=== PATIENT | female | born 1955 | race Caucasian/White ===

== ENCOUNTER → 2018-10-09 09:23 | Outpatient (CLI) | payer OTHER, SELFPAY ==
--- NOTE | 2018-10-09 | DI.MG.S_ITS ---
BILATERAL DIGITAL SCREENING MAMMOGRAM 3D/2D WITH CAD: 10/09/2018 CLINICAL: Routine screening. Comparison is made to exams dated: 11/02/2016 mammogram, 07/27/2015 mammogram, and 03/31/2010 mammogram - [facility]. The tissue of both breasts is heterogeneously dense. This may lower the sensitivity of mammography. Current study was also evaluated with a Computer Aided Detection (CAD) system. No significant masses, calcifications, or other findings are seen in either breast. There has been no significant interval change. IMPRESSION: NEGATIVE There is no mammographic evidence of malignancy. A 1 year screening mammogram is recommended. This exam was interpreted at Station ID: [id number]. NOTE: For mammograms, a report in lay terms will be sent to the patient. Approximately 15% of breast malignancies will not be visualized mammographically. In the management of a palpable breast mass, a negative mammogram must not discourage biopsy of a clinically suspicious lesion. Electronically Signed By: Carlton gustafson/zahida:10/09/2018 10:19:18 letter sent: Normal Exam ACR BI-RADS Category 1: Negative [id number]
== END ==
PROVIDERS: PCP Family Medicine; Visit Provider Family Medicine
DX: Z12.31 Encounter for screening mammogram for malignant neoplasm of breast (principal); Z78.0 Asymptomatic menopausal state; E07.9 Disorder of thyroid, unspecified; Z82.62 Family history of osteoporosis
CPT/HCPCS: 77063; 77067; 77080

== ENCOUNTER 2018-10-18 08:23 | Emergency (ER) | payer OTHER, SELFPAY ==
--- NOTE | 2018-10-18 08:31 | ED.FALL ---
HPI - Fall General Chief Complaint: Fall Stated Complaint: fell at work Time Seen by Provider: 10/18/18 08:25 Source: patient and family Mode of arrival: ambulatory Limitations: no limitations History of Present Illness HPI Narrative: 63-year-old nonsmoker with hypertension presents with a chief complaint of a mechanical fall suffered yesterday while at work. 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 She has a small bump on her lip but denies any noted head pain or head injury. She denies any neck or back pain. She has pain in her knee which is worse with range of motion and ambulation but admittedly not terrible. Additionally she has pain in her right shoulder which is made worse with range of motion. She denies numbness, tingling or weakness. She has been taking Motrin for pain MD complaint: fall and other Onset (ago): hour(s) Fall from: standing Fall witnessed: no Place fall occurred: work Loss of consciousness: none Prolonged down time: no Symptoms prior to fall: none Context: tripped/slipped Location of injury - extremities: Left: knee and Right: shoulder Severity: mild Quality: aching Associated symptoms (after fall): other Related Data Home Medications Medication Instructions Recorded Confirmed Atorvastatin Calcium (Lipitor) 5 mg PO DAILY #0 12/29/05 Fexofenadine Hydrochloride 60 mg PO DAILY #0 12/29/05 (Harper) HYDROCHLOROTHIAZIDE (Hydrodiuril / 0 mg PO * UK DOSE/FREQUENCY #0 12/29/05 Hctz) Hydroxychloroquine Sulfate 200 mg PO TWICE DAILY #0 12/29/05 (Plaquenil) Allergies Allergy/AdvReac Type Severity Reaction Status Date / Time Penicillins [PENICILLINS] Allergy Unknown ITCHING Verified 10/18/18 08:40 Review of Systems Constitutional Denies chills, Denies fever(s), Denies lethargy and Denies weakness Eyes Denies change in vision, Denies eye discharge, Denies irritation and Denies loss of vision ENT Ears, Nose, Mouth, and Throat: Denies change in voice, Denies neck pain and Denies sore throat Cardiovascular Denies chest pain, Denies irregular heart rhythm, Denies lightheadedness, Denies palpitations, Denies dyspnea, Denies dyspnea on exertion and Denies orthopnea Respiratory Denies cough, Denies dyspnea, Denies dyspnea on exertion and Denies wheezing Gastrointestinal Gastrointestinal: Denies abdominal pain, Denies change in bowel habits, Denies diarrhea, Denies nausea and Denies vomiting Genitourinary Denies hematuria, Denies flank pain, Denies urinary incontinence and Denies urinary urgency Musculoskeletal Reports abnormal gait, Reports limited range of motion and Denies neck pain Integumentary/Breasts Denies pruritus, Denies erythema, Denies rash and Denies wounds Neurologic Reports abnormal gait, Denies confusion, Denies loss of vision and Denies weakness Psychiatric Denies anxiety, Denies confusion, Denies depression, Denies homicidal ideation and Denies suicidal ideation Endocrine Denies palpitations Hematologic/Lymphatic Denies easy bruising Allergic/Immunologic Denies wheezing Exam Narrative Exam Narrative: GENERAL: 63-year-old female appears younger than stated age in mild distress. A&O x3, GCS is 15 HEAD: Minimal bruising to left side of upper lip Normocephalic. No temporal or scalp tenderness. EYES: Pupils equal round and reactive. Extraocular motions intact. No scleral icterus. No injection or drainage. ENT: Nose without bleeding, purulent drainage or septal hematoma. Throat without erythema, tonsillar hypertrophy or exudate. Uvula midline. Airway patent. NECK: Trachea midline. No JVD or lymphadenopathy. Supple, nontender, no meningeal signs. CARDIOVASCULAR: Regular rate and rhythm without murmurs, gallops, or rubs. RESPIRATORY: Clear to auscultation. Breath sounds equal bilaterally. No wheezes, rales, or rhonchi. GASTROINTESTINAL: Abdomen soft, non-tender, nondistended. No hepato-splenomegaly, or palpable masses. No guarding. EXTREMITIES: Full but painful range of motion of both the right shoulder and left knee. No significant effusion, closed, neurovascularly intact. There is some ecchymosis to the anterior left knee BACK: Nontender without deformity or crepitance. No flank tenderness. NEURO: AOx3. SKIN: No rash or erythema. Initial Vital Signs Initial Vital Signs: Vital Signs Temperature 97.7 F 10/18/18 08:36 Pulse Rate 77 10/18/18 08:36 Respiratory Rate 18 10/18/18 08:36 Blood Pressure 195/97 H 10/18/18 08:36 Pulse Oximetry 99 10/18/18 08:36 [facility] [place] Medical History (Updated 10/18/18 @ 08:35 by Jose Page DO) HTN (hypertension) (Acute) Social History Smoking Status: Never smoker Social History Smoking Status: Never smoker Course Orders Ordered: ED Orders 10/18/18 08:31 XR knee LT 3V Stat XR shoulder RT min 2V Stat Vital Signs - 8 hr 10/18/18 08:36 10/18/18 09:31 Temperature 97.7 F 98.1 F Pulse Rate 77 76 Respiratory Rate 18 20 Blood Pressure 195/97 H 161/95 H Pulse Oximetry 99 98 MDM - Fall Imaging Data Knee Xray: Radiologist's impression: [address] [address] XRay Report Signed Patient: SpragueArmen#: [id number] : 4Acct:[id number] Age/Sex: 63 / FDate of Service: 10/18/18 Loc: ED Accession Number: [id number] Procedure: XR knee LT 3V Ordering Provider: Jose Page D.O. PROCEDURE: XR KNEE LT 3V INDICATIONS: fall with anterior knee pain TECHNIQUE: 3 views of the knee were acquired. COMPARISON: None. FINDINGS: Bones: No fractures or dislocations. No suspicious bony lesions. Mild periarticular osteophyte formation at the left knee joint. Soft tissues: No joint effusion. No suspicious soft tissue calcifications. IMPRESSION: Osteoarthritis. No acute fracture. No osseous lesion. If symptoms and/or clinical suspicion for pathology persist, further assessment with repeat, or advanced imaging (e.g., CT, MRI, or bone scan) may be helpful for further assessment. Dictated by: Sukhwinder De Guzman M.D. on 10/18/2018 at 9:07 Approved by: Sukhwinder De Guzman M.D. on 10/18/2018 at 9:08 Shoulder Xray: Radiologist's impression: [address] [address] XRay Report Signed Patient: Armen Sprague#: [id number] : 4Acct:[id number] Age/Sex: 63 / FDate of Service: 10/18/18 Loc: ED Accession Number: [id number] Procedure: XR shoulder RT min 2V Ordering Provider: Jose Page D.O. PROCEDURE: XR SHOULDER RT MIN 2V INDICATIONS: fall with R shoulder pain TECHNIQUE: 3 views of the shoulder were acquired. COMPARISON: None. FINDINGS: Bones: No fractures or dislocations. No suspicious bony lesions. Visualized ribs appear intact. Periarticular osteophyte formation at the acromioclavicular joint glenohumeral joints. Soft tissues: No suspicious soft tissue calcifications. IMPRESSION: Osteoarthritis. No acute fracture. No osseous lesion. If symptoms and/or clinical suspicion for pathology persist, further assessment with repeat, or advanced imaging (e.g., CT, MRI, or bone scan) may be helpful for further assessment. Dictated by: Sukhwinder De Guzman M.D. on 10/18/2018 at 9:08 Approved by: Sukhwinder De Guzman M.D. on 10/18/2018 at 9:09 Discharge Plan Departure Patient Disposition: Home Clinical Impression: Muscle strain of right shoulder Qualifiers: Encounter type: initial encounter Qualified Code(s): S46.911A - Strain of unspecified muscle, fascia and tendon at shoulder and upper arm level, right arm, initial encounter Contusion of knee, left Qualifiers: Encounter type: initial encounter Qualified Code(s): S80.02XA - Contusion of left knee, initial encounter Discharge Date/Time: 10/18/18 09:31 Interventions: ED Discharge Assessment Last Done: 10/18/18 09:31 Instructions: DI for Shoulder Sprain Activity Restrictions/Additional Instructions: *You have been diagnosed with [right shoulder sprain and left knee contusion after fall] *What to do: *Take medications as directed: Tylenol or Motrin for pain *Follow up with your primary care provider in 2-3 days, call for an appointment. Let them know you were seen in the Emergency Department and that we ask that you be seen in follow up *Return to ER if you should have any new, worsening or concerning symptoms Prescriptions: No Action Atorvastatin Calcium (Lipitor) 5 mg PO DAILY Qty: 0 RF: 0 HYDROCHLOROTHIAZIDE (Hydrodiuril / Hctz) PO * UK DOSE/FREQUENCY Qty: 0 RF: 0 Hydroxychloroquine Sulfate (Plaquenil) 200 mg PO TWICE DAILY Qty: 0 RF: 0 Fexofenadine Hydrochloride (Harper) 60 mg PO DAILY Qty: 0 RF: 0 Referrals: Quiana Romero MD [Primary Care Provider] -
[2018-10-18 08:36] VITALS: BP 195/97; PULSE 77; RESP 18; TEMP 36.5; O2SAT 99; BMI 37.1
--- NOTE | 2018-10-18 08:36 | ED_ITS ---
HPI - Fall General Chief Complaint: Fall Stated Complaint: fell at work Time Seen by Provider: 10/18/18 08:25 Source: patient and family Mode of arrival: ambulatory Limitations: no limitations History of Present Illness HPI Narrative: 63-year-old nonsmoker with hypertension presents with a chief complaint of a mechanical fall suffered yesterday while at work. 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 She has a small bump on her lip but denies any noted head pain or head injury. She denies any neck or back pain. She has pain in her knee which is worse with range of motion and ambulation but admittedly not terrible. Additionally she has pain in her right shoulder which is made worse with range of motion. She denies numbness, tingling or weakness. She has been taking Motrin for pain MD complaint: fall and other Onset (ago): hour(s) Fall from: standing Fall witnessed: no Place fall occurred: work Loss of consciousness: none Prolonged down time: no Symptoms prior to fall: none Context: tripped/slipped Location of injury - extremities: Left: knee and Right: shoulder Severity: mild Quality: aching Associated symptoms (after fall): other Related Data Home Medications Medication Instructions Recorded Confirmed Atorvastatin Calcium (Lipitor) 5 mg PO DAILY #0 12/29/05 Fexofenadine Hydrochloride 60 mg PO DAILY #0 12/29/05 (Harper) HYDROCHLOROTHIAZIDE (Hydrodiuril / 0 mg PO * UK DOSE/FREQUENCY #0 12/29/05 Hctz) Hydroxychloroquine Sulfate 200 mg PO TWICE DAILY #0 12/29/05 (Plaquenil) Allergies Allergy/AdvReac Type Severity Reaction Status Date / Time Penicillins [PENICILLINS] Allergy Unknown ITCHING Verified 10/18/18 08:40 Review of Systems Constitutional Denies chills, Denies fever(s), Denies lethargy and Denies weakness Eyes Denies change in vision, Denies eye discharge, Denies irritation and Denies loss of vision ENT Ears, Nose, Mouth, and Throat: Denies change in voice, Denies neck pain and Denies sore throat Cardiovascular Denies chest pain, Denies irregular heart rhythm, Denies lightheadedness, Denies palpitations, Denies dyspnea, Denies dyspnea on exertion and Denies orthopnea Respiratory Denies cough, Denies dyspnea, Denies dyspnea on exertion and Denies wheezing Gastrointestinal Gastrointestinal: Denies abdominal pain, Denies change in bowel habits, Denies diarrhea, Denies nausea and Denies vomiting Genitourinary Denies hematuria, Denies flank pain, Denies urinary incontinence and Denies urinary urgency Musculoskeletal Reports abnormal gait, Reports limited range of motion and Denies neck pain Integumentary/Breasts Denies pruritus, Denies erythema, Denies rash and Denies wounds Neurologic Reports abnormal gait, Denies confusion, Denies loss of vision and Denies weakness Psychiatric Denies anxiety, Denies confusion, Denies depression, Denies homicidal ideation and Denies suicidal ideation Endocrine Denies palpitations Hematologic/Lymphatic Denies easy bruising Allergic/Immunologic Denies wheezing Exam Narrative Exam Narrative: GENERAL: 63-year-old female appears younger than stated age in mild distress. A&O x3, GCS is 15 HEAD: Minimal bruising to left side of upper lip Normocephalic. No temporal or scalp tenderness. EYES: Pupils equal round and reactive. Extraocular motions intact. No scleral icterus. No injection or drainage. ENT: Nose without bleeding, purulent drainage or septal hematoma. Throat without erythema, tonsillar hypertrophy or exudate. Uvula midline. Airway patent. NECK: Trachea midline. No JVD or lymphadenopathy. Supple, nontender, no meningeal signs. CARDIOVASCULAR: Regular rate and rhythm without murmurs, gallops, or rubs. RESPIRATORY: Clear to auscultation. Breath sounds equal bilaterally. No wheezes, rales, or rhonchi. GASTROINTESTINAL: Abdomen soft, non-tender, nondistended. No hepato- splenomegaly, or palpable masses. No guarding. EXTREMITIES: Full but painful range of motion of both the right shoulder and left knee. No significant effusion, closed, neurovascularly intact. There is some ecchymosis to the anterior left knee BACK: Nontender without deformity or crepitance. No flank tenderness. NEURO: AOx3. SKIN: No rash or erythema. Initial Vital Signs Initial Vital Signs: Vital Signs Temperature 97.7 F 10/18/18 08:36 Pulse Rate 77 10/18/18 08:36 Respiratory Rate 18 10/18/18 08:36 Blood Pressure 195/97 H 10/18/18 08:36 Pulse Oximetry 99 10/18/18 08:36 [facility] Medical History (Updated 10/18/18 @ 08:35 by Jose Page DO) HTN (hypertension) (Acute) Social History Smoking Status: Never smoker Social History Smoking Status: Never smoker Course Orders Ordered: ED Orders 10/18/18 08:31 XR knee LT 3V Stat XR shoulder RT min 2V Stat Vital Signs - 8 hr 10/18/18 08:36 10/18/18 09:31 Temperature 97.7 F 98.1 F Pulse Rate 77 76 Respiratory Rate 18 20 Blood Pressure 195/97 H 161/95 H Pulse Oximetry 99 98 MDM - Fall Imaging Data Knee Xray: Radiologist's impression: [address] [address] XRay Report Signed Patient: SpragueArmen#: [id number] : 4Acct:[id number] Age/Sex: 63 / FDate of Service: 10/18/18 Loc: ED Accession Number: [id number] Procedure: XR knee LT 3V Ordering Provider: Jose Page D.O. PROCEDURE: XR KNEE LT 3V INDICATIONS: fall with anterior knee pain TECHNIQUE: 3 views of the knee were acquired. COMPARISON: None. FINDINGS: Bones: No fractures or dislocations. No suspicious bony lesions. Mild periarticular osteophyte formation at the left knee joint. Soft tissues: No joint effusion. No suspicious soft tissue calcifications. IMPRESSION: Osteoarthritis. No acute fracture. No osseous lesion. If symptoms and/or clinical suspicion for pathology persist, further assessment with repeat, or advanced imaging (e.g., CT, MRI, or bone scan) may be helpful for further assessment. Dictated by: Sukhwinder De Guzman M.D. on 10/18/2018 at 9:07 Approved by: Sukhwinder De Guzman M.D. on 10/18/2018 at 9:08 Shoulder Xray: Radiologist's impression: [address] [address] XRay Report Signed Patient: Armen Sprague#: [id number] : 4Acct:[id number] Age/Sex: 63 / FDate of Service: 10/18/18 Loc: ED Accession Number: [id number] Procedure: XR shoulder RT min 2V Ordering Provider: Jose Page D.O. PROCEDURE: XR SHOULDER RT MIN 2V INDICATIONS: fall with R shoulder pain TECHNIQUE: 3 views of the shoulder were acquired. COMPARISON: None. FINDINGS: Bones: No fractures or dislocations. No suspicious bony lesions. Visualized ribs appear intact. Periarticular osteophyte formation at the acromioclavicular joint glenohumeral joints. Soft tissues: No suspicious soft tissue calcifications. IMPRESSION: Osteoarthritis. No acute fracture. No osseous lesion. If symptoms and/or clinical suspicion for pathology persist, further assessment with repeat, or advanced imaging (e.g., CT, MRI, or bone scan) may be helpful for further assessment. Dictated by: Sukhwinder De Guzman M.D. on 10/18/2018 at 9:08 Approved by: Sukhwinder De Guzman M.D. on 10/18/2018 at 9:09 Discharge Plan Departure Patient Disposition: Home Clinical Impression: Muscle strain of right shoulder Qualifiers: Encounter type: initial encounter Qualified Code(s): S46.911A - Strain of unspecified muscle, fascia and tendon at shoulder and upper arm level, right arm, initial encounter Contusion of knee, left Qualifiers: Encounter type: initial encounter Qualified Code(s): S80.02XA - Contusion of left knee, initial encounter Discharge Date/Time: 10/18/18 09:31 Interventions: ED Discharge Assessment Last Done: 10/18/18 09:31 Instructions: DI for Shoulder Sprain Activity Restrictions/Additional Instructions: *You have been diagnosed with [right shoulder sprain and left knee contusion after fall] *What to do: *Take medications as directed: Tylenol or Motrin for pain *Follow up with your primary care provider in 2-3 days, call for an appointment. Let them know you were seen in the Emergency Department and that we ask that you be seen in follow up *Return to ER if you should have any new, worsening or concerning symptoms Prescriptions: No Action Atorvastatin Calcium (Lipitor) 5 mg PO DAILY Qty: 0 RF: 0 HYDROCHLOROTHIAZIDE (Hydrodiuril / Hctz) PO * UK DOSE/FREQUENCY Qty: 0 RF: 0 Hydroxychloroquine Sulfate (Plaquenil) 200 mg PO TWICE DAILY Qty: 0 RF: 0 Fexofenadine Hydrochloride (Harper) 60 mg PO DAILY Qty: 0 RF: 0 Referrals: Quiana Romero MD [Primary Care Provider] -
[2018-10-18 09:31] VITALS: BP 161/95; PULSE 76; RESP 20; TEMP 36.7; O2SAT 98
== END 2018-10-18 09:31 | disposition home or self-care (01) ==
LOC: ED 09:31
PROVIDERS: Emergency Provider Emergency Medicine; PCP Family Medicine
DX: S46.911A Strain of unspecified muscle, fascia and tendon at shoulder and upper arm level, right arm, initial encounter (principal); S80.02XA Contusion of left knee, initial encounter; W18.30XA Fall on same level, unspecified, initial encounter; Y99.0 Civilian activity done for income or pay
CPT/HCPCS: 73030; 73562; 99282; 99283

== ENCOUNTER → 2020-08-26 10:38 | Outpatient (CLI) | payer OTHER, SELFPAY ==
--- NOTE | 2020-08-26 | DI.US.S_ITS ---
PROCEDURE: US PELVIC COMPLETE INDICATIONS: POSTMENOPAUSAL BLEEDING TECHNIQUE: Real-time scanning was performed of the pelvic organs, with image documentation. Additional endovaginal scanning was necessary due to incomplete visualization of the adnexal and endometrial structures by transabdominal scanning. Additionally, at the right uterus in the subserosal position there is a heterogeneous hypoechoic mass with internal vascularity measuring up to 2.7 x 2.7 x 2.9 cm. This could represent a subserosal fibroid or unusual manifestation of neoplasm. COMPARISON: None. FINDINGS: Uterus: Uterus is normal in size at 3.5 x 4.3 x 7.3 cm. The endometrium measures 16.2 mm in combined thickness, with hyperemia and abnormal masslike appearance for postmenopausal patient.. Ovaries: The right ovary measures 1.9 x 1.2 x 1.0 cm, and the left ovary is not well visualized. Other: No pathologic free abdominal or pelvic fluid. IMPRESSION: Endometrial mass, in the setting of postmenopausal vaginal bleeding, consistent with endometrial carcinoma. Biopsy is anticipated. Note is made of a 2.7 cm subserosal exophytic masslike structure at the right uterine border, considered statistically more likely to represent a fibroid than an unusual manifestation of primary or metastatic neoplasm. Contrast-enhanced MR scanning may be warranted for more accurate assessment in this clinical circumstance Nonvisualization of the left ovary.. Dictated by: Lamin Muse M.D. on 08/26/2020 at 12:32 Approved by: Lamin Muse M.D. on 08/26/2020 at 12:35
== END ==
PROVIDERS: PCP Family Medicine; Referring Provider Family Medicine; Visit Provider Family Medicine
DX: N95.0 Postmenopausal bleeding (principal); N85.9 Noninflammatory disorder of uterus, unspecified
CPT/HCPCS: 76830; 76856

== ENCOUNTER → 2020-09-06 09:17 | Outpatient (CLI) | payer OTHER, SELFPAY ==
[2020-09-06 09:52] LABS: COVID19 -Nasal RAPID Negative (Negative)
== END ==
PROVIDERS: PCP Family Medicine; Visit Provider Obstetrics & Gynecology
DX: Z01.812 Encounter for preprocedural laboratory examination (principal)
CPT/HCPCS: 87635

== ENCOUNTER 2020-09-09 06:40 | Day surgery (SDC) | payer OTHER, SELFPAY ==
[2020-09-07 13:15] VITALS: BMI 32.7
[2020-09-09] VITALS (7 sets, daily range): BP systolic 140–168; BP diastolic 70–85; PULSE 63–78; RESP 12–16; TEMP 36.4–36.7; O2SAT 97–99; BMI 32.7
--- NOTE | 2020-09-09 | PATH_ITS ---
[facility] Accession Number: [id number] . 01 Material submitted: . endometrium - ENDOMETRIAL CURRETTINGS AND MASS . 02 Diagnosis: Endometrial Curettings and Mass: Endometrial adenocarcinoma, endometrioid pattern, favor FIGO grade 1. [facility] 09/15/2020 1655 Local . 02 Comment: As part of routine quality improvement manager, Dr. Chris also reviewed this case and agrees with the diagnosis. . Results discussed with Dr. Susie Baldwin's R.N., on 09-15-20 at approximately 4:31 p.m. . 02 Electronically signed: . Geovanna Wang MD, Pathologist NPI- [id number] . 01 Gross description: . The specimen is received in formalin, labeled endometrial curettings and mass, and consists of multiple gifford-pink fragments of soft tissue admixed with mucus and clotted blood measuring 3.0 x 3.0 x 0.6 cm in aggregate. The specimen is entirely submitted in cassettes A1-A2. ([id number]) /[facility] 09/11/2020 1709 Local . 02 Pathologist provided ICD-10: N94.89, N85.02, C54.1 . 02 CPT . 679453 Performed at: 01 [facility] [address], [place], [place] [id number] MD Waldemar Kimball MD Phone: [phone] Performed at: 02 [facility] [address] [place], [place] [id number] MD Emilee Kincaid MD Phone: [phone]
[2020-09-09] MEDS: LACTATED RINGERS 1,000 ML 100 ML IV (07:24)
--- NOTE | 2020-09-09 07:39 | PM.HP.1 ---
History of Present Illness History of Present Illness Date Patient Seen: 09/09/20 Time Patient Seen: 07:40 Chief complaint: SDC Narrative: Patient is a 64-year-old 0 who presents for a D&C hysteroscopy due to complex atypical endometrial hyperplasia, and an Endo [place] mass Patient History Medical History (Updated 09/06/20 @ 09:39 by Mary Richards MD) Acquired hypothyroidism HTN (hypertension) Hypercholesterolemia Lupus Surgical History (Updated 09/07/20 @ 13:20 by Rochelle Haas RN) Hx of colonoscopy (2015) [place] teeth extracted Family & Social History Social History: household members spouse Tobacco & Substance use: Smoking Status Never smoker alcohol intake frequency 0-2 drinks per day Substance Use Type does not use Meds Home Medications and Allergies Home Medications Medication Instructions Recorded Confirmed Type HYDROCHLOROTHIAZIDE (Hydrodiuril / 25 mg PO * UK DOSE/FREQUENCY #0 12/29/05 09/09/20 History Hctz) atorvastatin 5 mg PO DAILY #0 12/29/05 09/07/20 History hydroxychloroquine 200 mg PO BID #0 12/29/05 09/07/20 History levothyroxine PO 09/06/20 09/06/20 History hydroxychloroquine 09/09/20 History venlafaxine mg 09/09/20 History Allergies Allergy/AdvReac Type Severity Reaction Status Date / Time Penicillins [PENICILLINS] Allergy Unknown ITCHING Verified 09/06/20 08:53 Exam Vital Signs (past 8 hours): - 09/09/20 07:15 Temperature 97.9 F Pulse Rate 76 Respiratory Rate 13 Blood Pressure 161/80 H Pulse Oximetry 98 Oxygen Delivery Method Room Air Narrative Exam Narrative: HEENT: No thyromegaly, no anterior cervical or supraclavicular lymphadenopathy. Lungs:Clear to auscultation bilaterally, no wheezes. Cardiovascular: Regular rate and rhythm, no murmurs, rubs, or gallops. Abdomen: No scars. No hepatosplenomegaly. No masses palpable. External genitalia: Normal Vagina: Normal Cervix: Normal Bimanual exam: 7 Week size anteverted uterus. Mobile. No adnexal masses or tenderness Rectal: No masses. Assessment & Plan Assessment & Plan narrative: Assessment: 64-year-old 0 with complex atypical endometrial hyperplasia and an endometrial mass Plan: D&C hysteroscopy with biopsy of the mass to rule out endometrial cancer The risks, benefits, and alternatives to the procedure were explained to the patient. The risks including bleeding, infection, and uterine perforation. She understands these risks and agrees to proceed. A full par Q was held and consent form was signed. COVID-19 COVID-19 status: Negative Result date/Date tested (Pos, Neg/Pending): 09/06/20 Time Spent With Patient Time with patient: 15-24 minutes
--- NOTE | 2020-09-09 07:41 | PM.PREOP ---
Pre-operative Note COVID-19 COVID-19 status: Negative Result date/Date tested (Pos, Neg/Pending): 09/06/20 Interval Note History & Physical reviewed/Exam performed by Physician: Yes Changes to H&P: No H&P completed within 30 days and has changed as indicated here:: 09/09/20
--- NOTE | 2020-09-09 08:03 | SUR.OPER ---
Lithotomy on padded OR bed, head on pillow, arms secured on padded arm boards at <90 degrees abduction. Legs secured in padded yellow fins stirrups.
--- NOTE | 2020-09-09 08:24 | P.OP_ITS ---
Operative Date/Time/Diagnoses Date of procedure: 09/09/20 Time of procedure: 08:24 Pre-op diagnosis: Complex atypical endometrial hyperplasia Uterine mass Post-op diagnosis: same Procedure & Clinicians Procedure: Procedures Operation Date: 09/09/20 07:45 Actual Procedures Side Surgeon p D&C Hysteroscopy Mary Richards MD Indications: Complex atypical endometrial hyperplasia Endometrial mass Surgeon: Mary Richards Anesthesia Type: General (LMA) Operative Notes Findings: Seven week size anteverted uterus Polypoid mass arising from the posterior wall of the uterus Fallopian tube ostia not observed Closure Type: not applicable Specimen(s): endometrial curettings (And pieces of endometrial mass) Estimated blood loss (mL): 10 Blood products transfused: none Procedure in detail: After informed consent was obtained, the patient was taken to the operating room where she was placed in the dorsal supine position. After adequate LMA general anesthesia was achieved, she was placed in the dorsal lithotomy position, and prepped and draped in the usual sterile fashion. A time-out was performed. A Carrasquillo speculum was placed into the vagina. The anterior lip of the cervix was grasped with a single-tooth tenaculum. The cervi dashawn os was sequentially dilated to the # 9 Hegar dilator. The hysteroscope passed easily into the endometrial cavity. There was an irregular mass arising from the posterior wall of the uterus. There was thickened endometrium throughout. The hysteroscope was removed. The polyp forceps were used to obtain pieces of the mass. Gentle sharp curettage was then performed yielding moderate amount of curettings. The instruments were removed from the uterus. The single-tooth tenaculum was removed from the anterior lip of the cervix. The bivalve speculum was removed from the vagina. Sponge, lap, and instrument counts were correct x2. The patient tolerated the procedure well, and was taken to PACU in stable condition. Complications: none Post-operative Condition: stable Disposition: PACU Plan for aftercare: Home after recovery
[2020-09-09] MEDS: OXYCODONE/ACETAMINOPHEN 5/325 TABLET 1 TAB PO (08:47)
== END 2020-09-09 09:20 | disposition home or self-care (01) ==
PROVIDERS: PCP Family Medicine; Referring Provider Family Medicine; Visit Provider Obstetrics & Gynecology
PROC: 0UDB8ZZ Extraction of Endometrium, Via Natural or Artificial Opening Endoscopic (ICD-10-PCS; CPT 58558; principal; 2020-09-09 07:45)
DX: C54.1 Malignant neoplasm of endometrium (principal); E66.9 Obesity, unspecified; I10 Essential (primary) hypertension; G47.33 Obstructive sleep apnea (adult) (pediatric); E03.9 Hypothyroidism, unspecified; E78.00 Pure hypercholesterolemia, unspecified; M32.9 Systemic lupus erythematosus, unspecified
CPT/HCPCS: 58558; J1100; J1885; J2405; J2704; J3010

== ENCOUNTER → 2020-10-19 11:54 | Outpatient (CLI) | payer OTHER, SELFPAY | PROVIDERS: PCP Family Medicine; Referring Provider Obstetrics & Gynecology; Visit Provider Obstetrics & Gynecology | DX: Z01.818 Encounter for other preprocedural examination (principal) | CPT/HCPCS: 93005 ==

== ENCOUNTER → 2020-12-04 09:52 | Outpatient (CLI) | payer OTHER, SELFPAY ==
--- NOTE | 2020-12-04 | DI.MG.S_ITS ---
BILATERAL DIGITAL SCREENING MAMMOGRAM 3D/2D WITH CAD: 12/04/2020 CLINICAL: Routine screening. Comparison is made to exams dated: 10/09/2018 mammogram, 11/02/2016 mammogram, and 07/27/2015 mammogram - [facility]. The tissue of both breasts is heterogeneously dense. This may lower the sensitivity of mammography. Current study was also evaluated with a Computer Aided Detection (CAD) system. No significant masses, calcifications, or other findings are seen in either breast. There has been no significant interval change. IMPRESSION: NEGATIVE There is no mammographic evidence of malignancy. A 1 year screening mammogram is recommended. This exam was interpreted at Station ID: [id number]. NOTE: For mammograms, a report in lay terms will be sent to the patient. Approximately 15% of breast malignancies will not be visualized mammographically. In the management of a palpable breast mass, a negative mammogram must not discourage biopsy of a clinically suspicious lesion. Electronically Signed By: Shahbaz giron/zahida:12/06/2020 09:19:29 letter sent: Normal Exam ACR BI-RADS Category 1: Negative 3341F
== END ==
PROVIDERS: PCP Family Medicine; Referring Provider Family Medicine; Visit Provider Family Medicine
DX: Z12.31 Encounter for screening mammogram for malignant neoplasm of breast (principal)
CPT/HCPCS: 77063; 77067

== ENCOUNTER → 2022-01-09 11:01 | Outpatient (CLI) | payer MEDICARE, SELFPAY ==
--- NOTE | 2022-01-09 | DI.MG.S_ITS ---
BILATERAL DIGITAL SCREENING MAMMOGRAM 3D/2D WITH CAD: 01/09/2022 CLINICAL: Routine screening. Comparison is made to exams dated: 12/04/2020 mammogram, 10/09/2018 mammogram, 11/02/2016 mammogram, and 07/27/2015 mammogram - [facility]. Both breasts are heterogeneously dense, which may obscure small masses (category c / 51-75% glandular tissue). Current study was also evaluated with a Computer Aided Detection (CAD) system. No significant masses, calcifications, or other findings are seen in either breast. There has been no significant interval change. IMPRESSION: NEGATIVE There is no mammographic evidence of malignancy. A 1 year screening mammogram is recommended. Based on the Tyrer Cuzick model (a risk assessment model) the patient's lifetime risk is 10.3% and her 10 year risk is 5.7%. According to the ACR, ACS, and NCCN guidelines, an annual breast MRI exam along with mammogram is recommended if the patient's lifetime risk is 20% or greater. This exam was interpreted at Station ID: [id number]. NOTE: For mammograms, a report in lay terms will be sent to the patient. Approximately 15% of breast malignancies will not be visualized mammographically. In the management of a palpable breast mass, a negative mammogram must not discourage biopsy of a clinically suspicious lesion. Electronically Signed By: Riki richards/zahida:01/09/2022 13:06:41 letter sent: Normal Exam ACR BI-RADS Category 1: Negative 3341F
== END ==
PROVIDERS: PCP Family Medicine; Referring Provider Family Medicine; Visit Provider Family Medicine
DX: Z12.31 Encounter for screening mammogram for malignant neoplasm of breast (principal); Z13.820 Encounter for screening for osteoporosis; M85.851 Other specified disorders of bone density and structure, right thigh; M85.852 Other specified disorders of bone density and structure, left thigh; Z90.710 Acquired absence of both cervix and uterus
CPT/HCPCS: 77063; 77067; 77080

== ENCOUNTER → 2022-04-11 10:07 | Outpatient (CLI) | payer MEDICARE, SELFPAY ==
[2022-04-11 12:31] LABS: COVID19 -Nasal RAPID Negative (Negative)
== END ==
PROVIDERS: PCP Family Medicine; Visit Provider Surgery
DX: Z01.812 Encounter for preprocedural laboratory examination (principal); Z20.822 Contact with and (suspected) exposure to COVID-19
CPT/HCPCS: 87635; C9803

== ENCOUNTER 2022-04-12 09:48 | Day surgery (SDC) | payer MEDICARE, SELFPAY ==
[2022-04-12 10:22] VITALS: BP 134/72; PULSE 63; RESP 15; TEMP 36.8; O2SAT 100; BMI 33.4
[2022-04-12] MEDS: SODIUM CHLORIDE 0.9% 1,000 ML 84 ML IV (10:31)
--- NOTE | 2022-04-12 10:31 | P.HP_ITS ---
History of Present Illness History of Present Illness Date Patient Seen: 04/12/22 Chief complaint: Colonoscopy Narrative: History of colon polyps Patient History Medical History (Updated 09/21/20 @ 19:52 by Monica Varner) Acquired hypothyroidism HTN (hypertension) Hypercholesterolemia Lupus Scoliosis Sleep apnea Surgical History (Updated 09/21/20 @ 19:52 by Monica Varner) Anesthesia Hx of colonoscopy (2015) [place] teeth extracted Family & Social History Family History (Updated 09/21/20 @ 19:53 by Monica Varner) Father Cancer Mother Dementia Brother Diabetes mellitus Social History: household members spouse Tobacco & Substance use: Smoking Status Never smoker alcohol intake current alcohol intake frequency 0-2 drinks per day Substance Use Type does not use Meds Home Medications and Allergies Home Medications Medication Instructions Recorded Confirmed Type HYDROCHLOROTHIAZIDE (Hydrodiuril / 25 mg PO * [place] DOSE/FREQUENCY ##0 12/29/05 09/09/20 History Hctz) atorvastatin 10 mg tablet 5 mg PO DAILY ##0 12/29/05 09/07/20 History hydroxychloroquine 200 mg tablet 200 mg PO BID ##0 12/29/05 09/07/20 History levothyroxine PO 09/06/20 09/06/20 History hydroxychloroquine 200 mg tablet 09/09/20 History losartan 50 mg tablet 09/09/20 History oxycodone 5 mg tablet 5 mg PO Q4H PRN pain #7 tabs 09/09/20 Rx venlafaxine 37.5 mg tablet mg 09/09/20 History Allergies Allergy/AdvReac Type Severity Reaction Status Date / Time Penicillins [PENICILLINS] Allergy Unknown ITCHING Verified 09/06/20 08:53 Exam Vital Signs (past 8 hours): - 04/12/22 10:22 Temperature 98.3 F Pulse Rate 63 Respiratory Rate 15 Blood Pressure 134/72 Pulse Oximetry 100 Oxygen Delivery Method Room Air Oxygen Delivery Method Room Air Narrative Exam Narrative: Oropharynx free of lesions Chest clear to auscultation percussion Cardiac exam reveals no S3 or murmur Assessment & Plan Assessment & Plan narrative: Personal history of colon polyps need for follow-up colonoscopy. Risks, benefits, alternatives have been explained. Time Spent With Patient Critical Care time: I spent a total of [] minutes of critical care time on this patient's care today; this time is exclusive of procedural time.
--- NOTE | 2022-04-12 10:32 | PM.OP.COLON ---
Operative Date/Time/Diagnoses Date of procedure: 04/12/22 Pre-op diagnosis: See indication and findings Procedure & Clinicians Study performed: Colonoscopy Indications: Personal history of colon polyps Surgeon: Juan C Mantilla Procedure Notes Procedure in detail: After informed consent was obtained the patient was placed in left lateral decubitus position. The video colonoscope was introduced the rectum slowly advanced cecum. Preparation was good. On slow withdrawal mucosa was carefully examined. The scope was removed. The patient tolerated procedure well. Blood loss none Complications none Sedation mac Findings 1. Normal colonoscopy to cecum I would suggest follow-up colonoscopy in 7-10 years
[2022-04-12 10:59] VITALS: BP 106/65; PULSE 65; RESP 16; TEMP 36.5; O2SAT 98
[2022-04-12 11:04] VITALS: BP 118/59; PULSE 57; RESP 11; O2SAT 98
[2022-04-12 11:09] VITALS: PULSE 60; RESP 15; O2SAT 99
[2022-04-12 11:31] VITALS: BP 125/64; PULSE 54; RESP 16; TEMP 36.6; O2SAT 100
== END 2022-04-12 11:33 | disposition home or self-care (01) ==
PROVIDERS: PCP Family Medicine; Referring Provider Internal Medicine Gastroenterology; Visit Provider Internal Medicine Gastroenterology
PROC: 0DJD8ZZ Inspection of Lower Intestinal Tract, Via Natural or Artificial Opening Endoscopic (ICD-10-PCS; CPT 45378; principal; 2022-04-12 11:00)
DX: Z12.11 Encounter for screening for malignant neoplasm of colon (principal); Z86.010 Personal history of colon polyps
CPT/HCPCS: G0105; J2704

== ENCOUNTER → 2023-10-03 11:20 | Outpatient (CLI) | payer MEDICARE, SELFPAY ==
--- NOTE | 2023-10-03 11:21 | DI.RAD.S_ITS ---
PROCEDURE: XR DEXA AXIAL SKELETON INDICATIONS: disorders of bone density COMPARISON: [facility], RAMON, XR DEXA AXIAL SKELETON, 01/09/2022, 11:21. FINDINGS: Lumbar Spine: Bone mineral density 1.1 g/cm2, T score 0.6. Left Hip: Bone mineral density 0.931 g/cm2, T score -0.1. Left Femoral Neck: Bone mineral density 0.687 g/cm2, T score -1.5. Right Hip: Bone mineral density 0.941 g/cm2, T score 0.0. Right Femoral Neck: Bone mineral density 0.658 g/cm2, T score -1.7. Fracture Risk Calculation (when applicable): 10-year fracture risk of a major osteoporotic fracture without prior fracture 9.8%, with prior fracture 16% and of a hip fracture without prior fracture 1.5%, with prior fracture 2.4%. (T score greater or equal to -1.0 to: NORMAL) (T score from -1.1 to -2.4: OSTEOPENIA) (T score less than or equal to -2.5: OSTEOPOROSIS) IMPRESSION: 1. Osteopenia of the bilateral femoral necks. Follow-up guidelines as follows: Osteoporosis: Consider a repeat DEXA and Vertebral Fracture Assessment (VFA) exam in 2 years or sooner if medically necessary, to reassess this patient's status. Osteopenia: Consider a repeat DEXA in 2-3 years to reassess this patient's status, or if there is a new clinical indication. Normal: Consider a repeat DEXA in 5 years or sooner, or if there is a new clinical indication. Dictated by: Marina William M.D. on 10/03/2023 at 13:52 Approved by: Marina William M.D. on 10/03/2023 at 13:54
--- NOTE | 2023-10-03 11:21 | DI.MG.S_ITS ---
BILATERAL DIGITAL SCREENING MAMMOGRAM 3D/2D WITH CAD: 10/03/2023 CLINICAL: Routine screening. Comparison is made to exams dated: 01/09/2022 mammogram, 12/04/2020 mammogram, and 10/09/2018 mammogram - [facility]. There are scattered areas of fibroglandular density in both breasts (category b / 25%-50% glandular tissue). Current study was also evaluated with a Computer Aided Detection (CAD) system. No significant masses, calcifications, or other findings are seen in either breast. There has been no significant interval change. IMPRESSION: NEGATIVE There is no mammographic evidence of malignancy. A 1 year screening mammogram is recommended. Based on the Tyrer Cuzick model (a risk assessment model) the patient's lifetime risk is 6.1% and her 10 year risk is 3.9%. According to the ACR, ACS, and NCCN guidelines, an annual breast MRI exam along with mammogram is recommended if the patient's lifetime risk is 20% or greater. This exam was interpreted at Station ID: [id number]. NOTE: For mammograms, a report in lay terms will be sent to the patient. Approximately 15% of breast malignancies will not be visualized mammographically. In the management of a palpable breast mass, a negative mammogram must not discourage biopsy of a clinically suspicious lesion. Electronically Signed By: Aparna Chung M.D., Ph.D. oracio/zahida:10/03/2023 13:13:48 letter sent: Normal Exam ACR BI-RADS Category 1: Negative 3341F
== END ==
PROVIDERS: PCP Family Medicine; Referring Provider Family Medicine; Visit Provider Family Medicine
DX: Z12.31 Encounter for screening mammogram for malignant neoplasm of breast (principal); R92.323 Mammographic fibroglandular density, bilateral breasts; M85.89 Other specified disorders of bone density and structure, multiple sites
CPT/HCPCS: 77063; 77067; 77080